=== PATIENT | male | born 1970 | race Two or more races ===

== ENCOUNTER 2016-11-24 10:46 | Inpatient (IN) | payer OTHER ==
[~2016-11-24] VITALS: Ht 177.8 cm; Wt 91.1 kg
--- NOTE | ~2016-11-24 | INDIVTXPLN ---
"PATIENT: CAMERON LOPEZ | | [facility] UNIT #: [id number] | [address] AGE/SEX: 46 M : 72 | [address] | [place] [phone] ADMIT/REG DATE: 11/24/16 | ROOM: [facility] LOC: ADTC | ADT | Individualized Treatment Plan Date: 01 DECEMBER 2016 Problem Statement/Issue Identified: CAMERON HAS A LONG HISTORY OF ALCOHOL ABUSE THAT HAS RESULTED IN FAMILY CONFLICT, CONVICTION OF DRIVING UNDER THE INFLUENCE, PROBATION AND TIME OFF OF WORK TO COMPLETE RESIDENTIAL TREATMENT. Goal: CAMERON WILL HONESTLY EXAMINE HIS ALCOHOL ABUSE AND THE NEGATIVE IMPACT IT HIS HAD ON HIS LIFE AND THE QUALITY OF RELATIONSHIPS WITH HIS FAMILY MEMBERS. Objectives/Activities to achieve goal: 1. Cameron will complete GETTING STARTED IN TREATMENT describing his feelings about being here, a honest history of his drinking, and a brief life story. He will process his work with his counselor and selected pages with his peer group. Due Date: Complete: Incomplete: 2. Cameron will read [employer] THINKIN highlighting those thinking errors and behaviors identified that parallel his own experience. Cameron will process his work and insights gained with his primary counselor. Due Date: Complete: Incomplete: 3. Cameron will complete an honest and thorough STEP ONE providing specific examples of preoccupation with alcohol, high risk behaviors, values compromised, etc. Cameron will share his work with his primary counselor and selected pages with his peer group. Due Date: Complete: Incomplete: Client signature Date Counselor signature Date Outcome/Measurement of Progress Towards Goal: Counselor's signature Date "
--- NOTE | ~2016-11-24 | INDIVTXPLN ---
PATIENT: CAMERON LOPEZ | | [facility] UNIT #: [id number] | [address] AGE/SEX: 46 M : 72 | [address] | [place] [phone] ADMIT/REG DATE: 11/24/16 | ROOM: [facility] LOC: ADTC | ADTC | Individualized Treatment Plan Date: 08 DECEMBER 2016 Problem Statement/Issue Identified: CAMERON'S ALCOHOL USE HAS RESULTED IN STRAINED RELATIONSHIPS WITH HIS FAMILY MEMBERS, LEGAL CHARGES AND TIME AWAY FROM HIS JOB. Goal: CAMERON WILL EXAMINE HIS LIFESTYLE AND BECOME WILLING TO MAKE SIGNIFICANT CHANGES IN HIS DAY TO DAY LIVING THAT WILL PROMOTE HEALING IN HIS FAMILY RELATIONSHIPS AND GIVE HIM THE GREATEST CHANCE OF SUCCESSFUL RECOVERY AND AVOIDING RELAPSE. Objectives/Activities to achieve goal: 1. Cameron will complete MY CHANGE PLAN identifying changes he is willing to make in "people, places, and things" that will provide him with the best chance of successful recovery. He will share his work and insights gained with his primary counselor and selected pages with his group. Due Date: Complete: Incomplete: 2. Cameron will complete RELAPSE PREVENTION identify primary potential relapse triggers/issues and developing a plan to deal with them as they arise. He will process his work and insights gained with his primary counselor and selected pages with his peer group. Due Date: Complete: Incomplete: 3. Cameron will obtain a TEMPORARY SPONSOR by the beginning of week three of his treatment and will be willing to call him and begin to develop a relationship with him while he is still in treatment. Due Date: Complete: Incomplete: 4. Cameron will become willing to lead a meeting of ALCOHOLICS ANONYMOUS while he is in treatment and will make it a point to reach out and introduce himself to other men that attend the 12-step meetings. Due Date: Complete: Incomplete: Client signature Date Counselor signature Date Outcome/Measurement of Progress Towards Goal: Counselor's signature Date
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
--- NOTE | ~2016-11-24 | RESCARESUM ---
"PATIENT: DELFIN LOPEZ | | [facility] UNIT #: [id number] | [address] AGE/SEX: 46 M : 72 | [address] | [place] [phone] ADMIT/REG DATE: 11/24/16 | ROOM: [facility] LOC: ADTC | ADTC | Summary of Residential Care Primary Counselor: Lavern Brock [facility] Date of Admission: 24 NOVEMBER 2016 Date of Discharge: 19 DECEMBER 2016 Referral Source: [facility] Primary Care Provider Prior to Admission: NONE IDENTIFIED Admitting Diagnosis: 303.90/F10.20 ALCOHOL USE DISORDER, SEVERE Discharge Diagnosis: SAME ABOVE Goals Achieved: CLIENT COMPLETED ALL TREATMENT PLAN OBJECTIVES TO INCLUDE AN HONEST AND THROUGH STEP ONE AND FEELINGS LETTERS TO HIS FAMILY MEMBERS. CLIENT APPEARED TO BE HONEST AND FORTHCOMING IN IDENTIFYING SPECIFIC ATTITUDES AND BEHAVIORS RELATED TO HIS SUBSTANCE ABUSE. HE GAINED KNOWLEDGE AND UNDERSTANDING OF VARIOUS ASPECTS OF THE DISEASE OF ALCOHOLISM AND VERBALIZES STRONG COMMITMENT TO SOBRIETY. Continued Obstacles to Sobriety/Relapse Issues: CLIENT'S PRIMARY OBSTICLE TO HIS SOBRIETY EFFORTS ARE HIS EMPLOYMENT ENVIRONMENT BUT CLIENT VERBLIZES WILLINGNESS TO CHANGE JOBS IF HE FEELS THAT HE WILL BE TEMPTED TO DRINK WITH COWORKERS. CLIENT'S EXTENDED FAMILY ALSO DRINK; HE VOWS THAT HE WILL REFUSE THEIR INVITATIONS TO HOLIDAY AND BIRTHDAY CELEBRATIONS IF THEY ARE NOT SUPPORTIVE OF HIS RECOVERY7 EFFORTS. Family Issues Addressed: FAMILY ATTENDED BOTH SESSIONS OF FAMILY EDUCATION, FAMILY GROUP AND TWO FAMILY SESSIONS.HIS FAMILY IS VERY SUPPORTIVE OF HIS RECOVERY. Y Individual Therapy Y Group Therapy Y Educational Series on Substance Abuse Y Parents/Significant Others Attended Family Program Y Accepting of Substance Abuse Problem Completed AA Step # 1 During This Level of Care VERY THOROUGH WITH THIS Significant Incidences During Treatment: NONE Reason For Discharge: Y Completed Residential [place] Goals and Ready For Next Level of Care Y Discharged Earlier Than Planned Due to: CLIENT DISCHARGED THREE DAYS EARLY TO ATTEND HIS BROTHER'S OPEN-HEART SURGERY IN [place]. Continuing Care Plan/Recommendations: Y Sponsor Y AA Meetings/NA Meetings PATIENT: DELFIN LOPEZ | | [facility] UNIT #: [id number] | [address] AGE/SEX: 46 M : 72 | [address] | [place] [address] ADMIT/REG DATE: 11/24/16 | ROOM: [facility] LOC: ADTC | ADT | Summary of Residential Care Y Outpatient Specific Continuing Care Plan: CLIENT WILL ATTEND OUTPATIENT AFTERCARE AND WILL MEET WITH LAVERN BROCK 12/22 @ . CLIENT WILL ATTEND BOTH WEEKLY GROUP SESSIONS AND BI-WEEKLY INDIVIDUAL SESSIONS. HE WILL BE REQUIRED TO ATTEND AT LEAST TWO AA MEETINGS PER WEEK AND HAVE CONTACT WITH HIS AA SPONSOR AT LEAST TWICE PER WEEK DURING THE COURSE OF HIS TREATMENT. PRIMARY COUNSELOR: LAVERN BROCK [facility]"
--- NOTE | ~2016-11-24 | TXPLANREV ---
"PATIENT: DELFIN LOPEZ | | [facility] UNIT #: [id number] | [address] AGE/SEX: 46 M : 72 | [address] | [place] [phone] ADMIT/REG DATE: 11/24/16 | ROOM: [facility] LOC: ADTC | ADT | Treatment Plan/Staffing Review Date: 15 DECEMBER 2016 Treatment plan was reviewed and determined appropriate as written: TREATMENT PLAN IS APPROPRIATE WRITTEN. Treatment plan was reviewed and the following changes/addition/deletions are necessary: NO CHANGES/ADDITIONS/OR DELETIONS ARE NECESSARY. DISCHARGE PLANS ARE APPROPRIATE PREVIOUSLY DOCUMENTED. DISCHARGE PLANS ARE APPROPRIATE PREVIOUSLY DOCUMENTED. Discharge plans were reviewed and determined to be as follows: CLIENT WILL DISCHARGE 19 DECEMBER 2016 WHICH WILL ALLOW HIM TO BE PRESENT WHEN HIS BROTHER UNDERGOES HEART SURGERY. CLIENT IS WILLING TO DO AFTERCARE AT [facility] FOLLOWING HIS RESIDENTIAL TREATMENT. Other pertinent issues discussed during this staffing review include: CLIENT HAS MADE GOOD PROGRESS EVIDENCED BY HIS CONTINUED WILLINGNESS TO GET HONEST ABOUT DISTORTIONS IN HIS THINKING AND BEHAVIORS THAT HAVE RESULTED IN HIS ADDICTION. CLIENT'S FAMILY HAVE PARTICIPATED BEST THEY CAN DUE TO LANGUAGE BARRIERS, WORK SCHEDULES AND LACK OF SUFFICIENT TRANSLATORS. TEENAGE DAUGHTER WAS ABLE AND WILLING TO ATTEND FAMILY EDUCATION WITH HER DAD AND HAS GAINED IMPORTANT UNDERSTANDING OF HIS DISEASE. CLIENT IS WORKING ON RELAPSE PREVENTION. Staff Present: ZION DALE PRIMARY COUNSELOR: LAVERN BROCK [facility] Client Signature Counselor Signature Date Time "
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
--- NOTE | ~2016-11-24 | TXPLANREV ---
"PATIENT: DELFIN LOPEZ | | [facility] UNIT #: [id number] | [address] AGE/SEX: 46 M : 72 | [address] | [place] [phone] ADMIT/REG DATE: 11/24/16 | ROOM: [facility] LOC: ADTC | ADTC | Treatment Plan/Staffing Review Date: 08 DECEMBER 2016 Treatment plan was reviewed and determined appropriate as written: TREATMENT PLAN IS APPROPRIATE WRITTEN. Treatment plan was reviewed and the following changes/addition/deletions are necessary: ADDITIONAL TREATMENT PLANS WERE CREATED TO ADDRESS CHANGE/RELAPSE, SPIRITUALITY, FEELINGS LETTERS/GRIEF Discharge plans were reviewed and determined appropriate as previously documented: TENTATIVE DISCHARGE DATE IS 19 DECEMBER 2016; CLIENT WILL DISCHARGE EARLIER THAN PREVIOUSLY DOCUMENTED TO ENABLE HIM TO ATTEND CRITICAL SURGERY OF A CLOSE FAMILY MEMBER. Discharge plans were reviewed and determined to be as follows: SEE ABOVE Other pertinent issues discussed during this staffing review include: CLIENT APPEARS TO HAVE MADE SIGNIFICANT PROGRESS THUS FAR. HE HAS COMPLETED HIS GETTING STARTED IN TREATMENT, STEP ONE AND IS WORKING ON FEELINGS/GRIEF LETTERS. CLIENT'S FAMILY HAS ATTENDED A JOINT SESSION, BUT WILL NOT BE ATTENDING FAMILY EDUCATION DUE TO LANGUAGE BARRIERS AND WORK SCHEDULE. Staff Present: ORLIN MENDENHALL PRIMARY COUNSELOR: LAVERN BROCK [facility] Client Signature Counselor Signature Date Time "
--- NOTE | 2016-11-24 15:30 | NUR ---
INITIAL SESSION 1 HR: Carlito was seen by substitute counselor. He was oriented to tx plans, schedules and was shown where primary counselor's office is, along with white board to check for appointments. He advised he came from detox center, where he had gone to begin his journey for recovery. His doc is alcohol, he has been for 22 years, has a 21 yr old son and two other children in their teens, and his thinks she might be . He has 2 pending DUI charges. Carlito signed his initial tx plan, was allowed to call his to inform her of visiting hours and heard his primary counselor will contact his family about family education.
--- NOTE | 2016-11-24 17:19 | NUR ---
ADMISSION NOTE Client is a 46 y/o male, brought to treatment from the Crisis Stabilization Unit by CSU staff. Client had been in the CSU for 9 days. Kellie states NKMA and brings home medications with him, these were packaged for storage at the pharmacy. Client states DOC is alcohol, last used 11/15/2016, when client consumed 3 drinks and decided to enter detox. Client resides in [place] with his and children, but does not think their schedules will allow for Family Group participation. Client was searched, no contraband found. Rights/Responsibilities: Copy given and explained to client. Signed and accepted by client. Client oriented to physical lay out of the ADTC unit, given Big Book and admission packet. A Deny was assigned. Vicente Garrett
--- NOTE | 2016-11-24 23:06 | NUR ---
Tech Note: Client participated in rec and attended A.A.Meeting.
--- NOTE | 2016-11-24 23:24 | NUR ---
Education Note: Client watched the healthy families video which lasted an hour.
--- NOTE | 2016-11-25 04:50 | NUR ---
Bed note: Client was in bed with eyes closed and no distress at all bed checks
--- NOTE | 2016-11-25 14:42 | NUR ---
Group 1.5hr/ 11:1 Clients all were attentive as peers shared GS packets and some shared how they relate. This client did share about himself and was ORIENTED to group rules.
--- NOTE | 2016-11-25 15:21 | NUR ---
PEER REVIEWS 1 HR: Clt participated in peer review process and was able to give open and honest feedback to those receiving a review.
--- NOTE | 2016-11-25 16:33 | NUR ---
Tech Note: Client watched a video "How to Sabotage Your Treatment" and is working on Getting Started.
--- NOTE | 2016-11-25 23:56 | NUR ---
TECH NOTE: Client participated in guideline reading, watched tv/movies and was redirected for speaking arabic with male peer SE: food
--- NOTE | 2016-11-26 04:48 | NUR ---
BED NOTE: Client was in bed, motionless with eyes closed all three bed checks.
--- NOTE | 2016-11-26 12:24 | NUR ---
PEER REVIEWS 1 HR: Clt participated in peer review process and was able to give open and honest feedback to those receiving a review.
--- NOTE | 2016-11-26 16:28 | NUR ---
Tech Note: Client went to AA mtg at [facility] and [facility]. Is working on Getting Started. Client had visitors.
--- NOTE | 2016-11-26 20:06 | NUR ---
TECH NOTE: Client played Catch Phrase for REC, attended off site AA meeting, watched TV/movies SE:visitors and food
--- NOTE | 2016-11-27 04:50 | NUR ---
Bed Note: Clt lay motionless in bed with eyes closed showing no distress at all bed checks.
--- NOTE | 2016-11-27 16:16 | NUR ---
Tech Note: Client participated in Big Book Study. Client stated that he is working on, "How to Get Started in Treatment." Client attended anabaptism in the morning and received visitors in the afternoon.
--- NOTE | 2016-11-27 22:55 | NUR ---
TECH NOTE: Client attended AA panel, participated in community clean and watched tv/movies. SE: visits
--- NOTE | 2016-11-28 04:28 | NUR ---
Bed Note: Clt lay motionless in bed with eyes closed showing no distress at all bed checks.
--- NOTE | 2016-11-28 10:19 | NUR ---
Tech notes: Client is working on Getting started
--- NOTE | 2016-11-28 12:00 | NUR ---
Group 1.5hr/ 12:1 Clients heard peer share about guilt and many client gave feedback and related. This client was attentive.
--- NOTE | 2016-11-28 12:44 | NUR ---
Education Note: Client attended educational speaker Kit on Crossaddiction.
--- NOTE | 2016-11-28 16:41 | NUR ---
INDIVIDUAL SESSION 1 HR; Client submitted GETTING STARTED PACKET. Reviewed client's BIO/PSYCHO/SOCIAL ASSESSMENT. He came to this country in 1988 after graduation from high school. Client's parents were already living and working in [facility]. Client came to [place] where some of his sibblings had come. Client says he became a [place] citizen in 2001. Client has worked for [employer] for 19 years but said he is willing to a change jobs if his current job threatens his recovery efforts. Client is confident that he will have a job when he completes treatment, but said so many of his coworkers drink, that it might be a trigger to hear them talk about it. Client has three children, son 21 (working & [employer]), a daughter 17 and another son 15. Client's has only minimal understanding of [place] and doesn't speak any. I will need to use his daughter as an custodial supervisor or enlist the help of one of the hospital custodial supervisor. She works as [employer]. He did not see how they can attend FAMILY EDUCATION due to work schedules. Son is fulltime student at [employer], then works nearly every night at [employer]. Client denies that he has missed any work because of his drinking. He said they are laid off right now because of the weather. Client said his drinking has increased due to this lay off and he is drinking a 12 pk nearly daily. Client said he got his 2nd DUI in October, and already the first one pending since August,. Client said he knew that was enough! Client said his and children have all begged him to quit. Client denies any alcoholism in his family that he is aware of. Maybe uncles in [place]. Client was very pleasant. Seems very serious about this and determined not to drink again. Client said he has tried to cut back slowly but really felt lousey. I explained that this could be dangerous. Client did talk about his younger brother who is 33 and scheduled for a second major heart surgery in [place] on 12/20. Client became tearful saying he would like to be able to be there. I told him I would talk with the rest of the staff about this. Client was assigned STEP ONE & ARLEEN GODFREYIN.
--- NOTE | 2016-11-28 17:20 | NUR ---
FAMILY CONTACT: Contact made with client's with son and client interpreting. Whomever can attend, will be here for a FAMILY SESSION on Saturday 12/02 4p
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
--- NOTE | 2016-11-28 20:36 | NUR ---
Education: 1 hour lecture on feelings given by counselor
--- NOTE | 2016-11-28 23:48 | NUR ---
Tech Note: Client played a game for rec, and attended N.A.Meeting. SE: Counselor Session
--- NOTE | 2016-11-29 04:04 | NUR ---
bed note: client was in bed with eyes closed and no distress at all bed checks.
--- NOTE | 2016-11-29 11:30 | NUR ---
GROUP 1.5 HRS. 1:9 Group discussion included how to deal with feelings appropriately and relapse triggers. Client appeared attentive and participated in discussion.
--- NOTE | 2016-11-29 15:00 | NUR ---
BIG GRP 5:21/ We had a big grp to confront sleeping pills being on the unit, dishonesties, and anything else going on that needed to be addressed. Clt denied knowing someone had brought anything on the unit. He sat mostly quiet, and offered little feedback.
--- NOTE | 2016-11-29 15:16 | NUR ---
Education Note: Client heard a presentation on, "Grief."
--- NOTE | 2016-11-29 16:30 | NUR ---
Tech Note: Client particiapted in light stretching for morning exercise and walked in the halls in the afternoon. Client stated that he is working on Step One.
--- NOTE | 2016-11-30 00:07 | NUR ---
Education: 1 hour lecture given by Counselor on Step 1
--- NOTE | 2016-11-30 00:24 | NUR ---
Tech note: client worked on projects for the alumni layne for rec and attended AA meeting SE: 1 week clean
--- NOTE | 2016-11-30 04:17 | NUR ---
Bed Note: Clt lay motionless in bed with eyes closed showing no distress at all bed checks.
--- NOTE | 2016-11-30 10:02 | HP ---
ADMIT: 11/24/2016 RM/LOC: [facility] MR#: [id number] [address] [id number] DELFIN LOPEZ [place], [place] [phone] History and Physical SEX: M AGE: 46 : 1970 DATE OF SERVICE: REASON FOR ADMISSION: This is for his admission to the residential care program with [facility]. CHIEF COMPLAINT: Drinking too much, unable to quit on his own. CLINICAL HISTORY: Mr. Lopez is a 46-year-old male, admitted to the residential care program for treatment of his alcohol use disorder. He comes to the treatment program after having spent the past week at [facility] for detox. The patient was admitted to the [facility] on 11/16/2016 and transferred to the [facility] on 11/24/2016. The patient notes that alcohol is his drug of choice. He notes he first started drinking in his early 20s but has been drinking regularly for the last 20 years with significant escalation in his drinking over the last 10 years. He notes in the last couple of months, he has been drinking heavily on a daily basis because he was laid off. 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 He notes when he is not working, he drinks daily, drinking to the point of intoxication, frequently starting to drink midmorning and then drinking all day long. He prefers to drink beer if he is just drinking in the evening, he will drink usually a 12 pack. If he starts drinking earlier in the day, he will drink up to as many as 20-24 cans of beer in a day. The patient notes that he does have occasional blackouts when drinking heavily. He notes his drinking has caused significant relationship problems between he and his . This caused significant financial problems. He also has significant legal issues since he was recently arrested for 2 DUIs within a short period of time and both of those DUI charges are pending. He denies any other drug use, noting that he has never used any other drugs other than alcohol and alcohol is his drug of choice and it has led to significant problems in his life at this time. He has tried to quit on his own, on 3 or 4 occasions, usually can go about a week without drinking and then he starts drinking again. As noted, he comes to treatment after having spent the past week at [facility] for detox. PREVIOUS HOSPITALIZATIONS: None. PREVIOUS OPERATIONS: None. CURRENT MEDICATIONS: He is on Capoten 25 mg one daily for hypertension. ALLERGIES: NONE KNOWN. MEDICAL ILLNESSES: The patient notes he has a history of hypertension. Other than for high blood pressure, he denies any other chronic medical issues. He is noted to be a nonsmoker. REVIEW OF SYSTEMS: A 12-point review of systems at this time is negative with no significant cardiac, pulmonary, GI, , musculoskeletal, or neurologic problems. ADMIT: 11/24/2016 RM/LOC: [facility] MR#: [id number] [address] [place] [id number] [address] [place] [address] History and Physical SEX: M AGE: 46 : 1970 SOCIAL HISTORY: The patient is . He has been to his for over 22 years. They have 3 children, ages 21, 17, and 15. He notes that he was born in [place] but has lived essentially his entire life in the [place]. 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 FAMILY HISTORY: He denies any family history of substance abuse or chemical dependency. No significant family history of illicit use. PHYSICAL EXAMINATION: VITAL SIGNS: Temp is 97.3, pulse is 46, respirations 12, blood pressure 129/78, height 5 feet 10 inches, weight is 200 pounds. GENERAL: The patient is a 46-year-old male, who appears his stated age. He is in no acute distress. He is oriented x3. HEENT: Unremarkable. Ears are clear. Nose and throat noninflamed. Oropharynx normal. NECK: Supple. Thyroid not enlarged. No cervical adenopathy. No neck vein distention. LUNGS: Today are noted to be clear. HEART: Regular rhythm without murmur. ABDOMEN: Soft, nontender. No masses. No organomegaly. No hernias. GENITALIA: Normal male. EXTREMITIES: Normal to gross exam. No peripheral edema. No clubbing or cyanosis. All extremities have full range of motion and mobility. INTEGUMENT: No rashes. NEUROLOGICAL: Within normal limits. No focal deficit. Balance and gait normal. MENTAL STATUS: He is pleasant and cooperative. Affect is appropriate. He has no bizarre ideation. No delusions. No hallucinations. No significant depressive symptoms. He is oriented x3. ASSESSMENT AT THE TIME OF ADMISSION: 1. Alcohol use disorder, severe. 2. Hypertension. PLAN: Admit the patient to the residential care program with a tentative discharge date of 12/22/2016. Upon completion of treatment, he would like to return to his home where he lives with his and children and then do aftercare followup here at the [facility]. Wyatt Gunter MD/ stephen JOB #: [id number] CC: Wyatt Gunter, Attending Physician NO FAMILY PHYSICIAN, Family Physician
--- NOTE | 2016-11-30 10:32 | NUR ---
Tech Notes: Client is working on Step 1
--- NOTE | 2016-11-30 12:39 | NUR ---
AM GROUP 11:1.5 HR: Client and peers helped to ORIENT NEW PEER TO GROUP GUIDELINES, GOALS AND PURPOSE. Client and peers heard several group members process assignments. Many of the examples given focused on neglect of their children and various clients related to this and shared personal feedback. This client shared from GETTING STARTED IN TREATMENT packet and did very well with this. Client has a heavy accent so is difficult to understand sometimes, but peers seemed very supportive of him. Client takes full ownership of the choices he has made sharing about coming to this country and testing his new freedom with alcohol. Client heard a lot of feedback but made it clear that he is prepared to leave his job of 20 years if he is too tempted to drink. Client said it is worse when they are out of town, because everyone is either drinking or using.
--- NOTE | 2016-11-30 13:28 | NUR ---
Education note: Client attended education by [facility]
--- NOTE | 2016-11-30 17:53 | NUR ---
SPIRITUAL EDUCATION 1 HR. Today we discussed ways to quiet the mind and meditation and creativity.
--- NOTE | 2016-11-30 23:24 | NUR ---
tech note: Client played a game for recreation & attended onsite NA meeting. Client slip from counselor to make call to his son which he did. SE: meeting.
--- NOTE | 2016-12-01 02:19 | NUR ---
Education: 1 Hour. Client attended "Unresolved Anger" video & discussion presented by staff.
--- NOTE | 2016-12-01 05:00 | NUR ---
BED NOTE: Client was in bed motionless with eyes closed all three bed checks.
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
--- NOTE | 2016-12-01 12:57 | NUR ---
Tech Note: Client participated in Spiritual Enrichment. Client stated that he is working on Step One and reading the Big Book.
--- NOTE | 2016-12-01 13:09 | NUR ---
Education 1 Hour: Client heard a presentation from a member of the recovery community, who shared his experience, strength and hope.
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
--- NOTE | 2016-12-01 18:00 | NUR ---
INDIVIDUAL SESSION 1 HR: Client reviewed and signed his INITIAL INDIVIDUALIZED PROBLEMS/NEEDS LIST, TREATMENT PLAN GOALS AND OBJECTIVES. Additional copies were made for his journal. I talked with client about his need to start on FEELINGS LETTERS to family members. Client asked to write them in Georgian, stating that though he reads and writes some Uruguayan, he needs to write in Georgian to express his feelings adequately. Family session is scheduled for tomorrow late afternoon with client's and daughter at least. Client became tearful when he talked about priortizing his job and making money ahead of special occasions with his family. He shared that his brother's left him because brother was always working.
--- NOTE | 2016-12-01 20:22 | NUR ---
Education 1HR: Clt watched video by Maury Lazcano on Step 5.
--- NOTE | 2016-12-01 22:40 | NUR ---
TECH NOTE: Client played Catch Phrase for REC, participated in Guided Meditation and attended onsite AA meeting. SE: group/AA meeting
--- NOTE | 2016-12-02 04:28 | NUR ---
Bed Note: Clt lay motionless in bed with eyes closed showing no distress at all bed checks.
--- NOTE | 2016-12-02 11:30 | NUR ---
Group 1.5 h/ 12:1 Client was attentive as peers share assignments of step 1 and GS.
--- NOTE | 2016-12-02 13:00 | NUR ---
PEER REVIEWS 1.25 HRS: Clt participated in peer reviews and took a risk to give open and honest feedback to those receiving a review.
--- NOTE | 2016-12-02 15:52 | NUR ---
Tech Note: Client watched a video "It Can't Happen To Me" and is working on Step 1, Big Book and Feelings Letters.
--- NOTE | 2016-12-02 18:00 | NUR ---
FAMILY SESSION 1 HR: Met with client, his and their three children (16, 18, 21). It was a good session, but language was definitely an obsticle. The 18 y/o daughter did most of any translation necessary, but in next session, I will try to have a coal deliverer attending. Much of the conversation was about client's abscence, even when he was in town, he was drinking and "abscent." The youngest son was very quiet, but it appeared to be shyness rather than shutdown. Client openly admitted that he has missed many special occasions and sporting events due to the work he does which takes him out of town every week. Client did make it clear to his family that he is prepared to quit his job if it becomes too much of a temptation when others are going to drink at the end of the day. Daughter asked her dad if he thinks months down the road, he will think it is ok for him to drink. Client was careful in how he responded saying, "I don't want to drink anymore and I'm going to try very hard not to." I suggested that they watch the Kazakh version of The [employer] when they visit on the weekend and they were all receptive to this. Because of work schedules and the language barrier, they will be unable to attend FAMILY EDUCATION. They will each write FEELINGS LETTERS to share next week on 12/09.
--- NOTE | 2016-12-02 22:46 | NUR ---
Tech note : Client watched tv, played games and talked on the phone SE; Family meeting
--- NOTE | 2016-12-03 05:02 | NUR ---
Bed note: Client was in bed with eyes closed and no distress at all bed checks.
--- NOTE | 2016-12-03 15:41 | NUR ---
Tech Note: Client attended N.A.Panel and is working on FL's, and step 1
--- NOTE | 2016-12-03 20:48 | NUR ---
tech note: client played game for recreation & attended offsite AA meeting.Client talked on the phone & watched tv. SE: Supper.
--- NOTE | 2016-12-04 16:06 | NUR ---
Tech Note: Client is working on Step1 and FL's. He had a visit and attended orthodox.
--- NOTE | 2016-12-04 22:30 | NUR ---
Tech note:Watched Tv and Movies. Participated in community clean, attended AA panel with Nigel Rivera SE: visits
--- NOTE | 2016-12-05 05:00 | NUR ---
Bed note: Client was in bed with eyes closed and no distress at all bed checks.
--- NOTE | 2016-12-05 11:30 | NUR ---
Experiential Group 1.5hr/ Clients all participated in Family Sculpturing by role-playing, relating and giving feedback. This client was involved and attentive.
--- NOTE | 2016-12-05 13:28 | NUR ---
Education note: Client attended education speaker Lisa on Tobacco.
--- NOTE | 2016-12-05 14:20 | NUR ---
Tech Note: client is working on Fl's.
--- NOTE | 2016-12-05 16:00 | NUR ---
RECOVERY 101 1 HR/ Clients all shared what they have struggled with in treatment and what helps them. This client shared he can't sleep at night, his brother has serious heart problems and a surgery on 01/19 so wants to be there but was scheduled to get out of tx on 01/22, he hopes he can be there as has been the one to look after this brother.
--- NOTE | 2016-12-05 17:06 | NUR ---
COUNSELOR NOTE: Notified client today that he will discharge 12/19 so that he can be in [place] for his brother's second open heart surgery. Client is very grateful.
--- NOTE | 2016-12-05 18:04 | NUR ---
Education: 1 Hour. Client attended "Forgiveness" lecture presented by staff.
--- NOTE | 2016-12-05 23:19 | NUR ---
tech note: client played a game for recreation & attended onsite NA meeting. SE: group & NA.
--- NOTE | 2016-12-06 04:35 | NUR ---
tech note: client was motinless in no distress at all bed checks.
--- NOTE | 2016-12-06 12:31 | NUR ---
AM GROUP 11:1/.5 HR: Client and peers heard several process assignments and issues. Most clients related in some manner and were quick to offer personal experience and feedback. This client shared from his GREATEST HURTS & ANGERS and did very well with this. Several of the things client identified refered to events that happened when he was drinking and caught up in that. Client heard a lot of feedback that caring is good, but thinking it is his responsibility to "fix" isn't healthy. Client heard that he needs to find a healthy balance.
--- NOTE | 2016-12-06 15:40 | NUR ---
Tech Note: Client attended programming on Relapse Prevention and is working on Feelings Letters and the Big Book.
--- NOTE | 2016-12-06 16:29 | NUR ---
Relapse Prevention, 10/24 ration, 1.0 hours, Client attended and participated in relapse prevention education which focused on relapse triggers/issues.
--- NOTE | 2016-12-06 22:25 | NUR ---
TECH NOTE: Client attended Alumni meeting and on-site AA meeting. SE: meeting with counselor
--- NOTE | 2016-12-06 22:56 | NUR ---
EDUCATION NOTE: 1HR lecture on Shame given by counselor
--- NOTE | 2016-12-07 04:45 | NUR ---
Bed note: Client was in bed with eyes closed and no distress at all bed checks.
--- NOTE | 2016-12-07 10:09 | NUR ---
Tech note: Client is working on Fl's
--- NOTE | 2016-12-07 12:11 | NUR ---
AM GROUP .5 HR: Client and peers helped to ORIENT TWO NEW CLIENTS TO GROUP GUIDELINES, GOALS AND OBJECTIVES. Several clients had assignments to process. This generated a lot of feedback and different individuals sharing from their own experience. Various examples of behaviors and values compromised were addressed with much of the focus on values compromised, how kids become the innocent victims of this disease and how painful but necessary it is to have to look at the reality of those consequences. Client related to his own denial and delusion in the belief that others did not know that he had been drinking or was under the influence. Client said he can look back now and recognize that he wasn't fooling anyone.
--- NOTE | 2016-12-07 12:46 | NUR ---
Education note: Client attended speaker Clemente Sanz
--- NOTE | 2016-12-07 16:10 | NUR ---
SPIRITUAL EDUCATION 1 HR. Topic today was on how addiction is a disease of body mind and spirit and how the Steps fit in treating the SPIRIT. We also talked about ways to spirituality, payoffs, and how spirituality is related to both addiction and recovery.
--- NOTE | 2016-12-07 18:28 | NUR ---
Education: 1 Hour. Client attended "Boundaries" lecture presented by staff.
--- NOTE | 2016-12-07 22:22 | NUR ---
Tech note : Client played pictionary for rec and attended an onsite NA meeting. SE: NA meeting
--- NOTE | 2016-12-08 05:20 | NUR ---
tech note: client was motionless in no distress at all bed checks.
--- NOTE | 2016-12-08 16:00 | NUR ---
INDIVIDUAL SESSION 1 HR: Client processed from his [employer] packet and has done well with this. Client very willing to identify and describe behaviors, most of which consisted of dishonesty with his /family, making excuses and manipulating situations that allowed him to go and drink with his friends. Client stating today that he will look for a job that keeps him closer to home so that he can get his treatment done and complete probation. He has stated willingness to find another job from the beginning. Client allowed to make calls to arrange for his daughter to attend FAMILY EDUCATION today since she is not in school.
--- NOTE | 2016-12-08 16:28 | NUR ---
Tech Note: Client participated in Spiritual Enrichment in the morning and went for an outdoor walk in the afternoon. Client followed programming.
--- NOTE | 2016-12-08 16:34 | NUR ---
Education 1 Hour: Client heard a presentaion on "Wellness in Recovery."
--- NOTE | 2016-12-08 17:09 | NUR ---
FAMILY EDUCATION 3 HRS Client attended family group and was joined by his daughter. Client share that he felt ashamed because he never tried to get help before coming to treatment. Client's daughter shared that her father would always say he was going to stop but never did. Client's daughter is glad that he came to treatment. Student: Addie Ballard
--- NOTE | 2016-12-08 23:07 | NUR ---
Tech note: Client worked on craft projects for the [employer] for rec and attended AA meeting SE:all day
--- NOTE | 2016-12-09 00:11 | NUR ---
Education note: Clients watched a movie on "my attitude' by Hilario Macdonald.
--- NOTE | 2016-12-09 04:56 | NUR ---
Bed note; client was motionlees, with eyes closed at all bed checks.
--- NOTE | 2016-12-09 12:15 | NUR ---
Group 1.5 Hr Ratio 1:12/Topics today were a change plan, resentment packet and a getting started. One new peer was orientated to group rules and goals. Client shared the first pages of his change plan and did a good job looking at changes he can make.
--- NOTE | 2016-12-09 14:06 | NUR ---
PEER REVIEWS 1.25 HRS: Clt participated in peer reviews and took a risk to give open and honest feedback to those receiving a review.
--- NOTE | 2016-12-09 16:28 | NUR ---
Tech Note: Client went with group for outside walk and watched "Marijuana", by Ye Macdonald, for education. Clt is working on the Big Book and his Change Plan.
--- NOTE | 2016-12-09 16:59 | NUR ---
FAMILY SESSION 1 HR: Client attended with his and three children. All had written FEELINGS LETTERS. Client's letters were very tender and he took ownership of time lost, his dishonesty and the conflict they saw between he and their mom. The kids letters were amazingly powerful, even the youngest (16). Client's 's letter was written in Cymro so I could not understand much of it but it was evident by the facial expressions and tone that it was tender yet dacosta. Very good session.
--- NOTE | 2016-12-09 23:52 | NUR ---
Tech Note: Client read guidelines with peers. Client watched tv. SE: Family
--- NOTE | 2016-12-10 05:34 | NUR ---
Bed Note: Client was motionless with eyes closed at all bed checks.
--- NOTE | 2016-12-10 15:49 | NUR ---
Tech Note: Client working on a Change Plan and the Big Book. He also had multiple visitors.
--- NOTE | 2016-12-10 20:34 | NUR ---
Tech Note: Client played a game for rec. They also attended the A.A.Meeting at [facility] and [place]. SE:Visitation
--- NOTE | 2016-12-11 05:31 | NUR ---
Bed Note: Client was motionless with eyes closed at all bed checks.
--- NOTE | 2016-12-11 15:35 | NUR ---
Tech Note: Client participated in Big Book Study. Client stated that he is working on, "Change Plan" and reading the Big Book. Client received visits.
--- NOTE | 2016-12-11 23:35 | NUR ---
Client attended A.A.Panel and helped with community clean. SE: Visitation
--- NOTE | 2016-12-12 05:03 | NUR ---
Bed Note: Client was motionless with eyes closed at all bed checks.
--- NOTE | 2016-12-12 10:12 | NUR ---
Tech note: Client is working on Change plan and mtg with mile
--- NOTE | 2016-12-12 11:30 | NUR ---
AM GRP 1.5 HRS, Ratio 1:11/ Clt sat mostly quiet, but at one point did offer great feedback to a peer who was struggling with knowing her nephew and niece were being given drugs as teens. Clt stated his own niece had been getting drunk and high, and someone turned them in, and she is now grown and in the service, so turning someone in might be helpful to them.
--- NOTE | 2016-12-12 14:38 | NUR ---
Education note: Client attended speaker for education Hugo Acuna
--- NOTE | 2016-12-12 17:00 | NUR ---
FAMILY EDUCATION 3 HRS. Client was accompanied by his daughter. They took part in the discussion on the family roles. Client identified as lost child and being very independent as he left home age 17(?) and came to this country alone. He is one of 9 children. Daughter related to family hero and Peers also see client as family hero.
--- NOTE | 2016-12-12 21:00 | NUR ---
FAMILY GROUP 4:/ HR: Client, peers and attending family members heard two clients and their loved ones process FEELINGS LETTRS. The theme "rebuilding trust" surfaced time and again as individuals shared their letters. This client attended with his 18 y/o daughter. Client related to shutting off his phone and/or ignoring his family's efforts to try to locate him in the wee hours of the morning. Daughter said she would wait up with her mom because she knew her mom was worried and hurting. Client said she felt relieved after client called to tell them that he was in long-term.
--- NOTE | 2016-12-12 22:44 | NUR ---
TECH NOTE: Client participated in family SE: family
--- NOTE | 2016-12-12 23:59 | NUR ---
Education: 1 Hour. Client attended "Adult Children" presentation given by staff.
--- NOTE | 2016-12-13 05:24 | NUR ---
BED NOTE: Client was in bed, motionless with eyes closed all three bed checks.
--- NOTE | 2016-12-13 11:30 | NUR ---
GROUP 1.5 HRS. 1:10 Group discussion included defenses of blaming others and willingness to take responsibility for one's recovery. Peers processed HOW TO GET STARTED IN TREATMENT assignments. This client appeared attentive but was mostly quiet.
--- NOTE | 2016-12-13 16:32 | NUR ---
Tech Note: Client attended speaker meeting, presented by [employer], and Relapse Prevention education. Client is currently working on the Big Book.
--- NOTE | 2016-12-13 17:22 | NUR ---
INDIVIDUAL SESSION 1 HR: Client processing FEELINGS LETTERS to his parents and a childhood friend who was killed when they were boys. Client did a excellent job on these. We talked about Family group last night. Client seemed to appreciate the sharing that was done and gained a better understanding of what the family at home is going through. He was pleased that his daughter spoke up and shared. Client was given his RELAPSE PREVENTION packet which won't get processed until aftercare. Client obtained a temporary sponsor who should be a good role model. His final session will be on Saturday 12/16. He will discharge between around 10 AM Monday morning.
--- NOTE | 2016-12-13 23:24 | NUR ---
Education note: 1 hour lecture given by counselor on "Self Esteem"
--- NOTE | 2016-12-13 23:38 | NUR ---
Tech note: Client worked on projects for the alumni [employer] for rec and attended AA meeting SEF:[facility]
--- NOTE | 2016-12-14 04:14 | NUR ---
BED NOTE: Client was in bed, motionless with eyes closed all three bed checks.
--- NOTE | 2016-12-14 10:56 | NUR ---
Tech note: Client is working on Relapse prevention
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
--- NOTE | 2016-12-14 13:15 | NUR ---
Education note: Client attended speaker Aryan for education today.
--- NOTE | 2016-12-14 20:00 | NUR ---
SPIRITUaL EDUCATION 1 HR. Today we discussed difference between spirituality and oriental orthodox, and then played a spiritual challenge game where group discussed thought provoking questions on spirituality and the meaning.
--- NOTE | 2016-12-14 22:42 | NUR ---
EDUCATION NOTE: 1 HR Counselor gave a lecture on Disease Concept
--- NOTE | 2016-12-14 23:50 | NUR ---
tech note: client played Pictionary for recreation & attended onsite NA mtg. SE: NA meeting.
--- NOTE | 2016-12-15 04:14 | NUR ---
BED NOTE: Client was in bed, motionless with eyes closed all three bed checks.
--- NOTE | 2016-12-15 11:58 | NUR ---
Group 1.5 Hr Ratio 2:20/Topic today was dealing with trauma. A new peer was also orientated to group rules and goals. Client shared a group rule and what he is grateful for but was quiet most of group.
--- NOTE | 2016-12-15 15:00 | NUR ---
INDIVIDUAL SESSION 1 HR: Met with client to go over TX PLAN REVIEW. Client verbalized agreement with the review and signed it. Discussed final arrangements on his early discharge Monday due to his brother's open heart surgery. Client seems to be dealing with his fear and concern, but it is obvious he has these feelings. Encouraged him to lean on support from his peers.
--- NOTE | 2016-12-15 15:45 | NUR ---
Tech Note: Client participated in Spiritual Enrichment in the morning and went for an outdoor walk in the afternoon. Client stated that he is working on, "Relapse Prevention."
--- NOTE | 2016-12-15 22:08 | NUR ---
EDUCATION NOTE 1HR: Recovery committee presented information on recovery
--- NOTE | 2016-12-15 22:12 | NUR ---
EDUCATION NOTE 1HR: Clients watched Ye Macdonald video on Behavior
--- NOTE | 2016-12-15 22:40 | NUR ---
TECH NOTE: Client helped by doing crafts for the dance for REC, and attended AA meeting.
--- NOTE | 2016-12-16 04:41 | NUR ---
Bed note: client was in bed moitionless with eyes closed and no distress at all bed checks.
--- NOTE | 2016-12-16 11:37 | NUR ---
FINAL RESIDENTIAL INDIVIDUAL SESSION 1 HR: Client processed his RELAPSE PREVENTION PACKET. He did quite well with this. Client is very determined at this point, that he will not drink again. His [place] culture will present challanges for him but he is adament at this point that he will do what he needs to do to take care of his recovery and thus, do what is best for his immediate family. I tend to believe him, but time will tell. A CONTINUED CARE PLAN was prepared and signed. Antonia presented. He is scheduled for his first OUTPATIENT SESSION on 12/22. He will actually discharge on Tuesday 12/19 to attend his brother's open heart surgery in [place]. He will be in either [facility] or [facility].
--- NOTE | 2016-12-16 15:48 | NUR ---
PEER REVIEWS 1.25 HRS: Clt participated in peer reviews and took a risk to give open and honest feedback to those receiving a review.
--- NOTE | 2016-12-16 16:20 | NUR ---
Tech Note: Client watched video ([employer]) and is working on the Big Book.
--- NOTE | 2016-12-16 22:24 | NUR ---
Tech Note : Client worked crafts and projects for the dance. Client watched TV.
--- NOTE | 2016-12-17 04:39 | NUR ---
Bed note: Client was in bed with eyes closed and no distress at all bed checks.
--- NOTE | 2016-12-17 17:57 | NUR ---
Tech Note: Client attended N.A. Panel and is working on BB. Client had visit
--- NOTE | 2016-12-17 19:11 | NUR ---
tech note: client attended offsite Alumni Dance.
--- NOTE | 2016-12-18 04:55 | NUR ---
BED NOTE: Client was in bed, motionless with eyes closed all three bed checks.
--- NOTE | 2016-12-18 17:02 | NUR ---
Tech Note: Client participated in Big Book Study and attended christianity. Client stated that he is working on reading the Big Book. Client attended christianity.
--- NOTE | 2016-12-18 23:32 | NUR ---
tech note: Client attended AA Panel & participated in Community Clean. Client watched tv,played cards & talked on the phone. SE: last day
--- NOTE | 2016-12-19 04:26 | NUR ---
bed note: client was in bed with eyes closed and no distress at all bed checks.
--- NOTE | 2016-12-19 09:05 | NUR ---
DISCHARGE NOTE Client left tx and all personal belongings were sent with. Discharge onstructions gone over and copy given.
--- NOTE | 2017-01-26 10:17 | DS ---
ADMIT: 11/24/2016 RM/LOC: [facility] MR#: [id number] [address] [address] [place] [address] General Discharge Summary SEX: M AGE: 46 : 1970 ADMISSION DATE: 11/24/2016 DISCHARGE DATE: 12/19/2016 ADMITTING DIAGNOSIS: As per history and physical. FINAL DIAGNOSES: 1. Alcohol use disorder, severe. 2. Hypertension. CLINICAL HISTORY: The patient is a 46-year-old male, admitted to the residential care program for treatment of his alcohol use disorder. For details of his pattern of usage and problems associated with his ongoing chemical dependency, please see clinical history portion of the dictated history and physical. Please also see dictated history and physical for pertinent past medical history and physical exam findings. LABORATORY AND X-RAY SUMMARY FROM THIS ADMISSION: The patient did have a BMP performed on 12/06/2016. Sodium was 139, potassium 4.0, BUN was 9, creatinine was 1.1. Blood sugar was 122, calculated GFR 81. HOSPITAL COURSE: The patient was admitted to the residential care program and assigned to his primary counselor, Jason Hugo, [facility] [place], [facility]. He remained in treatment from 11/24/2016 through 12/19/2016. While in treatment, he participated in individual therapy and group therapy. He was also given the educational series on substance abuse. His family attended the family education and family group sessions. His family was very supportive of his recovery. While in treatment, he was accepting of his substance abuse problem and worked well in both individual and group settings. He was given the educational series on substance abuse and worked on many of these assignments during his stay at the treatment program. While in treatment, he was able to complete step 1 of AA and was very thorough with completing his step 1. While in treatment, he had no significant medical issues or problems. He was able to complete all treatment plan objectives. He was able to gain a better understanding of the disease concept of addiction. He appeared to be very honest and forthcoming in identifying his specific attitudes and behaviors. He worked on identifying obstacles to his sobriety and worked on his own personal relapse prevention plan. He verbalized a strong commitment to sobriety. He ultimately completed his residential treatment goals and was felt to be ready for the next level of care. He was discharged a few days early because his brother was having cardiac surgery in [place] on the day of his discharge and he wanted to be there to give his family support. His condition at discharge was felt to be improved. At discharge, he was encouraged to continue outpatient treatment. He will attend weekly individual sessions here at the [facility] outpatient program. He will do weekly individual sessions with Jason Hugo, CRAIG, CHATO, and ADMIT: 11/24/2016 RM/LOC: [facility] MR#: [id number] [address] [place] [id number] [place] [address] General Discharge Summary SEX: M AGE: 46 : 1970 weekly group sessions as well. He will attend 2-3 AA meetings per week and maintain regular contact with his AA sponsor. He is to work a strong program of recovery. CONDITION AT DISCHARGE: Improved. PROGNOSIS: [place] to be good. DISCHARGE MEDICATIONS: At dismissal, his discharge medications included: 1. Capoten 100 mg once daily. 2. Multivitamin 1 daily. 3. Thiamine 100 mg daily. Wyatt Gunter MD/ stephen JOB #: [id number] CC: Wyatt Gunter MD, Attending Physician FAMILY PHYSICIAN, Family Physician
== END 2016-12-19 08:15 | disposition home or self-care (01) | DRG 895 ==
LOC: ADTC 13:24
PROVIDERS: ADMIT Family Medicine
PROC: HZ34ZZZ Individual Counseling for Substance Abuse Treatment, Interpersonal (ICD-10-PCS; principal; 2016-11-24)
PROC: HZ63ZZZ Family Counseling for Substance Abuse Treatment (ICD-10-PCS; principal; 2016-11-24)
PROC: HZ43ZZZ Group Counseling for Substance Abuse Treatment, 12-Step (ICD-10-PCS; principal; 2016-11-24)
DX: F10.20 Alcohol dependence, uncomplicated (principal); I10 Essential (primary) hypertension; Z63.72 Alcoholism and drug addiction in family; Z65.3 Problems related to other legal circumstances